=== PATIENT | female | born 1985 | race Caucasian/White ===

== ENCOUNTER 2022-06-12 00:11 | Emergency (ER) | payer MEDICAID ==
[~2022-06-12] VITALS: Ht 175.3 cm; Wt 113.3 kg
[~2022-06-12 00:11] MED LIST: HYDR50CA PO
[2022-06-12] MEDS ORDERED: acetaminophen 325mg tablet PO ONE (01:00)
[2022-06-12 01:23] LABS: BASOPHILS # (AUTO) 0.1 X10'3 (0-0.2); BASOPHILS % (AUTO) 0.4 % (0-1); EOSINOPHILS # (AUTO) 0.1 X10'3 (0-0.9); EOSINOPHILS % (AUTO) 0.6 % (0-6); HEMATOCRIT 30.7 % (35.0-45.0); HEMOGLOBIN 10.3 g/dl (12.0-16.0); LYMPHOCYTES # (AUTO) 2.7 X10'3 (1.1-4.8); LYMPHOCYTES % (AUTO) 14.5 % (21-51); MEAN CORPUSCULAR HEMOGLOBIN 25.5 PG (27.0-31.0); MEAN CORPUSCULAR HGB CONC 33.5 g/dL (33.0-36.5); MONOCYTES # (AUTO) 2.6 X10'3 (0-0.9); MONOCYTES % (AUTO) 13.9 % (2-12); NEUTROPHILS # (AUTO) 13.3 X10'3 (1.8-7.7); NEUTROPHILS % (AUTO) 70.6 % (42-75); PLATELET COUNT 324 X10'3 (140-440); RED BLOOD COUNT 4.04 X10'6 (4.20-5.60); RED CELL DISTRIBUTION WIDTH 16.7 % (11.5-14.5); WHITE BLOOD COUNT 18.7 X10'3 (4.5-11.0)
[2022-06-12 01:27] LABS: URINE HCG NEGATIVE (NEG)
[2022-06-12 01:32] LABS: CLARITY,URINE SLIGHTLY CLOUDY (Clear); COLOR,URINE YELLOW (Yellow); GLUCOSE, URINE NEGATIVE (Neg); KETONES,URINE NEGATIVE (Neg); LEUKOCYTE ESTERASE ,URINE TRACE (Neg); NITRITES, URINE POSITIVE (Neg); OCCULT BLOOD,URINE LARGE (Neg); PROTEIN,URINE TRACE mg/dl (Neg); UROBILINOGEN,URINE 0.2 E.U/dL (0.2-1.0)
[2022-06-12 01:37] LABS: ALANINE AMINOTRANSFERASE 33 U/L (12-78); ALBUMIN 2.7 G/DL (3.4-5.0); ALBUMIN/GLOBULIN RATIO 0.6 (1.1-1.5); ALKALINE PHOSPHATASE 68 IU/L (46-116); ANION GAP 8 (8-16); ASPARTATE AMINO TRANSFERASE 24 U/L (10-37); BILIRUBIN,TOTAL 0.3 MG/DL (0.1-1.0); BLOOD UREA NITROGEN 12 MG/DL (7-18); BUN/CREATININE RATIO 11.4 (10.0-20.0); CALCIUM 8.7 MG/DL (8.5-10.1); CHLORIDE 100 MMOL/L (99-107); CREATININE 1.05 MG/DL (0.40-0.90); GLUCOSE 132 MG/DL (70-104); POTASSIUM 3.5 MMOL/L (3.5-5.1); SODIUM 134 MMOL/L (135-145); TOTAL CARBON DIOXIDE 26.1 MMOL/L (24-32); TOTAL PROTEIN 7.1 G/DL (6.4-8.2); eGFR 59 ML/MIN
[2022-06-12 01:44] LABS: UA COLLECTION TYPE CLN CATCH MIDSTREAM
[2022-06-12 01:46] LABS: BACTERIA,URINE 4+ /HPF (Neg); MUCUS STRANDS FEW /LPF (Neg); RBC,URINE 0-2 /HPF (0-2); SQUAMOUS EPITHELIAL CELL,UR MODERATE /LPF (FEW); TRANSITIONAL EPI CELLS,URINE FEW /HPF
[2022-06-12] MEDS ORDERED: CEPH-585 PO (01:59)
[2022-06-12] MEDS ORDERED: cephalexin 500mg capsule PO ONE (02:00)
[2022-06-12 02:30] VITALS: BP 120/75
[2022-06-12 03:30] LABS: TOTAL CELLS COUNTED 100
[2022-06-12 03:31] LABS: ANISOCYTOSIS 1+; MICROCYTOSIS 1+; PLATELET ESTIMATE NORMAL
== END 2022-06-12 02:32 | disposition home or self-care (01) ==
LOC: ER 00:12
DX: N39.0 Urinary tract infection, site not specified (principal); Z20.822 Contact with and (suspected) exposure to COVID-19; F15.10 Other stimulant abuse, uncomplicated; D64.9 Anemia, unspecified; G89.29 Other chronic pain; M54.9 Dorsalgia, unspecified; Z88.8 Allergy status to other drugs, medicaments and biological substances; Z79.899 Other long term (current) drug therapy
CPT/HCPCS: 36415; 80053; 81001; 81025; 85007; 85025; 87502; 87503; 87635; 99283; C9803

== ENCOUNTER 2022-08-14 02:13 | Emergency (ER) | payer MEDICAID ==
[~2022-08-14] VITALS: Ht 175.3 cm; Wt 113.6 kg
[2022-08-14 02:15] VITALS: BP 150/88
[2022-08-14] MEDS ORDERED: CLOT15CR10 TOP (02:58)
[2022-08-14] MEDS ORDERED: SULF1TAB49 PO (02:58)
[2022-08-14] MEDS ORDERED: CEPH-585 PO (02:58)
== END 2022-08-14 03:10 | disposition home or self-care (01) ==
LOC: ER 02:14
DX: L03.311 Cellulitis of abdominal wall (principal); G89.29 Other chronic pain; F15.90 Other stimulant use, unspecified, uncomplicated; Z72.89 Other problems related to lifestyle; Z88.8 Allergy status to other drugs, medicaments and biological substances; Z79.899 Other long term (current) drug therapy
CPT/HCPCS: 99283

== ENCOUNTER 2022-09-12 20:22 | Emergency (ER) | payer MEDICAID ==
[~2022-09-12] VITALS: Ht 175.3 cm; Wt 113.6 kg
[~2022-09-12 20:22] MED LIST changes: +CEPH-585 PO; +CLOT15CR10 TOP
[2022-09-12 20:32] VITALS: BP 159/106
[2022-09-12 21:26] LABS: URINE HCG NEGATIVE (NEG)
[2022-09-12 21:27] LABS: CLARITY,URINE CLOUDY (Clear); GLUCOSE, URINE NEGATIVE (Neg); KETONES,URINE NEGATIVE (Neg); LEUKOCYTE ESTERASE ,URINE NEGATIVE (Neg); NITRITES, URINE NEGATIVE (Neg); OCCULT BLOOD,URINE MODERATE (Neg); PROTEIN,URINE TRACE mg/dl (Neg); UROBILINOGEN,URINE 0.2 E.U/dL (0.2-1.0)
[2022-09-12] MEDS ORDERED: DOXYCYCLINE 100MG CAPSULE PO STA (21:29)
[2022-09-12] MEDS ORDERED: sulfamethoxazole/trimethoprim DS (800/160mg) tablet PO ONE (21:30)
[2022-09-12] MEDS ORDERED: SULF1TAB49 PO (21:31)
[2022-09-12] MEDS ORDERED: DOXY-1 PO (21:31)
[2022-09-12 21:50] LABS: COLOR,URINE DARK YELLOW (Yellow); UA COLLECTION TYPE CLN CATCH MIDSTREAM
[2022-09-12 21:53] LABS: BACTERIA,URINE 3+ /HPF (Neg); MUCUS STRANDS MANY /LPF (Neg); SQUAMOUS EPITHELIAL CELL,UR MANY /LPF (FEW); WBC,URINE 0-4 /HPF (0-4)
== END 2022-09-12 21:46 | disposition home or self-care (01) ==
LOC: ER 20:22
DX: B00.1 Herpesviral vesicular dermatitis (principal); K13.0 Diseases of lips; F15.10 Other stimulant abuse, uncomplicated; G89.29 Other chronic pain; M54.9 Dorsalgia, unspecified; Z88.8 Allergy status to other drugs, medicaments and biological substances; Z79.899 Other long term (current) drug therapy; Z79.1 Long term (current) use of non-steroidal anti-inflammatories (NSAID); Z79.2 Long term (current) use of antibiotics
CPT/HCPCS: 81001; 81025; 99283

== ENCOUNTER 2022-10-27 00:27 | Emergency (ER) | payer MEDICAID ==
[~2022-10-27] VITALS: Ht 175.3 cm; Wt 127.2 kg
[2022-10-27 00:32] VITALS: BP 159/107; PULSE 87; RESP 16; TEMP 98.1; O2SAT 100
== END 2022-10-27 05:24 | disposition left against medical advice (07) ==
LOC: ER 00:28
DX: L02.211 Cutaneous abscess of abdominal wall (principal); Z53.21 Procedure and treatment not carried out due to patient leaving prior to being seen by health care provider
CPT/HCPCS: 99281

== ENCOUNTER 2024-11-12 18:04 | Emergency (ER) | payer MEDICAID ==
[~2024-11-12] VITALS: Ht 175.3 cm; Wt 126.5 kg
[~2024-11-12 18:04] MED LIST changes: -CEPH-585 PO
[2024-11-12 18:05] VITALS: BP 149/83; PULSE 87; RESP 16; O2SAT 98
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
[2024-11-12 19:21] LABS: URINE HCG NEGATIVE (NEG)
[2024-11-12] MEDS: ibuprofen tablet 400 MG TABLET PO ONE (19:21)
[2024-11-12] MEDS ORDERED: HYDR-3965 PO (19:43)
[2024-11-12 19:49] VITALS: TEMP 97.2
== END 2024-11-12 19:56 | disposition home or self-care (01) ==
LOC: ER 18:04
DX: R10.32 Left lower quadrant pain (principal); Z88.8 Allergy status to other drugs, medicaments and biological substances; V89.2XXA Person injured in unspecified motor-vehicle accident, traffic, initial encounter; Y93.89 Activity, other specified; Y92.410 Unspecified street and highway as the place of occurrence of the external cause; Y99.8 Other external cause status
CPT/HCPCS: 81025; 99283

== ENCOUNTER 2024-12-19 17:06 | Emergency (ER) | payer MEDICAID ==
[~2024-12-19] VITALS: Ht 175.3 cm; Wt 120.0 kg
[2024-12-19] MEDS ORDERED: CYCL-394 PO (18:14)
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
[2024-12-19] MEDS ORDERED: METH4TAB81 PO (18:39)
[2024-12-19 18:45] VITALS: BP 150/90; PULSE 88; RESP 18; TEMP 98.6; O2SAT 99
== END 2024-12-19 18:47 | disposition home or self-care (01) ==
LOC: ER 17:07
DX: M54.50 Low back pain, unspecified (principal); V89.2XXA Person injured in unspecified motor-vehicle accident, traffic, initial encounter; Y92.410 Unspecified street and highway as the place of occurrence of the external cause; Y93.89 Activity, other specified; Y99.8 Other external cause status
CPT/HCPCS: 99283

== ENCOUNTER 2025-02-20 04:45 | Emergency (ER) | payer MEDICAID ==
[~2025-02-20] VITALS: Ht 175.3 cm; Wt 123.0 kg
[~2025-02-20 04:45] MED LIST changes: +METH4TAB81 PO
[2025-02-20 04:49] VITALS: BP 142/85; PULSE 98; RESP 15; TEMP 97.6; O2SAT 98
[2025-02-20] MEDS ORDERED: SULF1TAB49 PO (05:30)
[2025-02-20] MEDS ORDERED: CEPH-585 PO (05:30)
--- NOTE | 2025-02-20 05:31 | Physician Documentation ---
History of Present Illness General Chief Complaint: Abscess Stated Complaint: ABSCESS Time Seen by MD: 05:26 Primary Medical Doctor: HANNAH PLASCENCIA History of Present Illness Initial Comments This is a 39-year-old female who reports a frequent history of cutaneous infections on her abdominal wall, presents for evaluation of right lower quadrant abdominal wall infection that has been present for the last two three days. This is painful, it is ride with the waistline. She noticed that it was draining and a drained significant amount of purulent discharge. Continues to hurt despite draining. Came in for further evaluation. Denies any fever or chills. Denies chest pain or difficulty breathing. Allergic to Cymbalta. Smokes Medication Reconciliation Allergies: Coded Allergies: duloxetine (Unverified Allergy, Unknown, 12/19/24) Scheduled Clotrimazole (Clotrimazole), 1 APPLIC TOP Q12H Clotrimazole (Clotrimazole), 1 APPLIC TOP Q12H Hydroxyzine Pamoate (Vistaril), 1 CAP PO Q8H Methylprednisolone (Medrol Dosepak), 0 PO UD Past Medical History Past Medical History: No Pertinent History, *RENAL/*, Chronic Pain, Chronic Back Pain, Cellulitis Past Surgical History: noncontributory Alcohol Use: Heavy Drug Use: methamphetamine Lives with: Spouse Occupation: unemployed Review of Systems ROS 10 point review of systems was performed and unless noted above in HPI is negative for acute process/complaint. Physical Exam Physical Exam Vital Signs: Temperature: 97.6, Source: Temporal, Heart Rate: 98, Respiratory Rate: 15, BP: 142/85, Pulse Oximetry: 98, Weight: 123.000 Physical Exam Physical examination: GENERAL: Awake, alert, oriented, GCS 15, no apparent distress, non-toxic appearing, answers questions, follows commands appropriately. HEENT: Atraumatic, normocephalic, pupils equal, extraocular muscles intact Active gross movements, sclerae anicteric, mucus membranes moist, no stridor. NECK: Midline, no JVD CARDIOVASCULAR: Good skin perfusion without evidence of pallor, mottling. PULMONARY: Nonlabored, symmetric chest rise, no audible wheezing, no accessory muscle use, no respiratory distress, speaking in full sentences. GASTROINTESTINAL: Not distended. NEUROLOGIC: Lucid with normal mental status. Normal facial symmetry. Moves all extremities symmetrically and with purpose. No truncal ataxia. Speech is fluid without evidence of dysarthria or aphasia, no focal deficits appreciated. EXTREMITIES: Acute deformities Skin: warm, dry PSYCHIATRIC: Normal affect, normal insight, normal concentration. Focused exam: Right lower quadrant abdominal wall examined. There is evidence of previous abscess, with a open drainage channel. No purulent discharge at this time. There is surrounding erythema, calor consistent with a cellulitis. No crepitus, no violaceous changes. Progress Results/Orders Results/Orders Vital Signs 02/20/25 04:49 Temp 97.6 Pulse 98 Resp 15 B/P (MAP) 142/85 Pulse Ox 98 Medical Decision Making Additional information obtaine: family Findings Facility Status: ED Holds, [facility] process The plan was discussed with the patient, who demonstrates clear understanding of the plan and is in agreement with the plan unless otherwise noted in the chart. All questions have been answered, all concerns were addressed unless otherwise documented. I was available throughout their ED stay for frequent reassessment and questions. Differential Diagnoses (considered and possible or likely): [Cellulitis, abscess, less likely necrotizing fasciitis, not consistent with a fungal infection] ??Differential Diagnoses (considered and unlikely, not requiring evaluation currently): [See above. Not consistent with the acute intra-abdominal process requiring surgical intervention] MDM Data Please see [facility] for the following: Independent Historians and external Records Review. Historian: [Patient] Independent Historians: ?[Record review, family] Medication Management: [Reviewed medication list] Social History and determinants: [Reviewed] Please see the body of the note for the following: Any independent interpret ations of ECG, imaging studies. All vitals signs/haemodynamics, ordered tests were independently reviewed and interpreted by myself. Nursing triage complaint and vitals reviewed, additional nursing notes were reviewed as available and I agree unless otherwise noted or documented in contradiction in the chart Vital Signs: Independently reviewed Labs: Independently interpreted Imaging: Independently interpreted Old Medical Records: Independently reviewed, see [facility] for relevant summary and information Pulse Oximetry: [98%] interpreted as [normal on room air] by me Additionally notably showing: [Hemodynamically stable] Tests considered but not ordered include: [Hematologic workup and imaging has been considered but does not appear to be necessary given clinical nature of diagnosis] Social Determinants of Health Impact: Patient was evaluated in [place], [facility] which is a [place] [facility] with limited access to healthcare due to below par ratio of patient to medical providers. [] Comorbid Conditions Impacting Present Evaluation and Care/Treatment: [History of abdominal wall abscesses] Management Discussions with other Healthcare Providers: [None] Treatment and Disposition Medication Management (Given or considered): [Initial dose of antibiotics]. See EMR for details Consideration for Hospitalization/Escalation/Deescalation of Care: Admission for observation has been considered, [however the patient is able to tolerate p.o., their symptoms are controlled, they are able to rely on oral medications, and their chief complaint/diagnosis can be managed on outpatient basis.] ?ED Course:?[No clinical deterioration] ?Shared decision making: Patient is hemodynamically stable for discharge home with follow with their primary care provider. [ ] Specific and cautious return precautions provided and discussed with full understanding. Any incidental findings were also discussed and follow up recommendations given. [] All questions answered. Patient/family were able to verbalize back return precautions. Patient/family agree to plan. Copies of imaging and laboratory studies were provided. Code status:?FULL Please see the full Electronic Medical Record for full details of nursing documentation, medications list, other records of complete past medical history and conditions, vital signs, laboratory studies, and any radiologic study interpretations by radiologists. Portions of this note were completed using [employer] dictation software and as a result there may exist minor errors in spelling. I have reviewed elements of past family and social history and agree as included in note. Differential Diagnosis See body of the main note for differential diagnosis Departure Disposition: 01 HOME / SELF CARE / HOMELESS Impression: Primary Impression: Cellulitis of right abdominal wall Condition: Improved Discharge Instructions: Cellulitis, Adult, [id number] Referrals: NO PRIMARY CARE PROVIDER (PCP) Prescriptions Sulfamethoxazole/Trimethoprim (Bactrim Ds Tablet) 800 Mg-160 Mg Tablet 1 TAB PO Q12H for 10 Days, #20 TAB Prov: BERT JOHN DO 02/20/25 Cephalexin*Monohydrate* (Keflex*) 500 Mg Capsule 1 CAP PO Q6H for 10 Days, #40 CAP Prov: BERT JOHN DO 02/20/25 Education Educated: Patient Educated regarding: diagnosis, treatment, prognosis, need for follow up Signature Scribe Signature: No scribe Attestation: The note accurately reflects work and decisions made by me.Bert John DO 02/20/25 05:30 BERT JOHN DO Feb 20, 2025 05:31
[2025-02-20] MEDS: sulfamethoxazole/trimethoprim DS (800/160mg) tablet PO ONE (05:44)
== END 2025-02-20 05:57 | disposition home or self-care (01) ==
LOC: ER 04:46
DX: L03.311 Cellulitis of abdominal wall (principal); F17.200 Nicotine dependence, unspecified, uncomplicated; Z88.8 Allergy status to other drugs, medicaments and biological substances
CPT/HCPCS: 99283